=== PATIENT | female | born 1970 | race Caucasian/White ===

== ENCOUNTER 2016-08-20 22:56 | Emergency (ER) | payer OTHER ==
[~2016-08-20] VITALS: Ht 170.2 cm; Wt 73.5 kg
[~2016-08-20 22:56] MED LIST: PRIMATENE MIST15 M1 IH; VENTOLIN HFA18 GM IH
[2016-08-20 23:48] LABS: BASOPHIL COUNT 0.1 K/uL (0-0.1); EOSINOPHIL (%) 5.1 % (0-5); EOSINOPHIL COUNT 0.6 K/uL (0-0.3); HEMATOCRIT 40.1 % (36.0-46.0); IMMATURE GRANULOCYTE (%) 0.4 % (0.0-0.7); IMMATURE GRANULOCYTE COUNT 0.1 K/uL; INSTRUMENT ABS NEUTROPHIL CT 6.3 K/uL; LYMPHOCYTE COUNT 4.8 K/uL (1.0-2.8); MCH 32.3 PG (29.0-34.0); MCHC 34.7 G/DL (30.0-36.0); MONOCYTE (%) 6.2 % (3-12); MONOCYTE COUNT 0.8 K/uL (0-0.8); NEUTROPHIL (%) 49.5 % (45-76); NEUTROPHIL COUNT 6.3 K/uL (1.8-6.4); PLATELET COUNT 277 K/uL (156-360); RBC DIS.WIDTH-CV 12.2 % (11.8-14.6); RBC DIS.WIDTH-SD 42.2 % (39-53); RED BLOOD COUNT 4.31 M/uL (3.80-5.20); WHITE BLOOD COUNT 12.7 K/uL (4.1-10.2)
[2016-08-21 00:04] LABS: CHLORIDE 102 mEq/L (99-109); POTASSIUM 2.8 mEq/L (3.7-5.4); SODIUM 138 mEq/L (136-147)
[2016-08-21 00:07] LABS: GLUCOSE 88 mg/dL (70-99)
[2016-08-21 00:08] LABS: ANION GAP 11 MEQ/L (2-14); TOTAL BILIRUBIN 0.7 mg/dL (0.0-1.0)
[2016-08-21 00:09] LABS: SERUM ETHYL ALCOHOL 189 mg/dL
[2016-08-21 00:10] LABS: GFR ESTIMATE (CALCULATED) > 59 mL/min/
[2016-08-21 00:11] LABS: ALKALINE PHOSPHATASE 74 IU/L (3-129)
[2016-08-21 00:12] LABS: UREA NITROGEN (BUN) 6 mg/dL (9-23)
[2016-08-21 00:14] LABS: SALICYLATE < 5.0 MG/DL (15-30)
[2016-08-21 00:23] LABS: ADD MIUA? NO; BILIRUBIN NEGATIVE; BLOOD NEGATIVE; COLOR COLORLESS ((YELLOW)); GLUCOSE (STRIP) NEGATIVE; KETONES NEGATIVE; LEUKOCYTES NEGATIVE; NITRITE NEGATIVE; PROTEIN (STRIP) NEGATIVE; SPECIFIC GRAVITY 1.003 (1.000-1.030); UCUL ADDED? NO; UROBILINOGEN 0.2 MG/DL (0.2-1.0)
[2016-08-21 00:45] LABS: AMPHETAMINE NEGATIVE (500 ng/mL); BARBITURATES NEGATIVE (200 ng/mL); BENZODIAZEPINES NEGATIVE (150 ng/mL); COCAINE NEGATIVE (150 ng/mL); METHADONE NEGATIVE (200 ng/mL); METHAMPHETAMINE NEGATIVE (500 ng/mL); OPIATES (MORPHINE) NEGATIVE (100 ng/mL); OXYCODONE NEGATIVE (100 ng/mL); PHENCYCLIDINE NEGATIVE (25 ng/mL); PROPOXYPHENE NEGATIVE (300 ng/mL); THC CANNABINOIDS NEGATIVE (50 ng/mL); TRICYCLIC ANTIDEPRESSANTS NEGATIVE (300 ng/mL)
[2016-08-21 00:46] LABS: INTERNAL CONTROLS VALID? YES
[2016-08-21] MEDS ORDERED: ATARAX,VISTARIL50 MG PO (03:55)
[2016-08-21 04:20] VITALS: BP 100/69
== END 2016-08-21 04:32 | disposition home or self-care (01) ==
LOC: EME 22:56
PROVIDERS: Emergency Medicine
DX: F32.2 Major depressive disorder, single episode, severe without psychotic features (principal); F10.129 Alcohol abuse with intoxication, unspecified; F43.20 Adjustment disorder, unspecified; E87.6 Hypokalemia; Z63.4 Disappearance and death of family member; Y90.6 Blood alcohol level of 120-199 mg/100 ml; J45.909 Unspecified asthma, uncomplicated; F17.200 Nicotine dependence, unspecified, uncomplicated
CPT/HCPCS: 80053; 81003; 85025; 90837; 99281; 99285; G0480

== ENCOUNTER 2017-02-07 18:18 | Emergency (ER) | payer OTHER ==
[~2017-02-07] VITALS: Ht 167.6 cm; Wt 67.4 kg
[~2017-02-07 18:18] MED LIST changes: +ATARAX,VISTARIL50 MG PO
[2017-02-07 19:09] LABS: HEMATOCRIT 35.7 % (36.0-46.0); MCH 32.9 PG (29.0-34.0); MCHC 34.2 G/DL (30.0-36.0); MCV 96.2 FL (83-99); PLATELET COUNT 302 K/uL (156-360); RBC DIS.WIDTH-CV 13.6 % (11.8-14.6); RBC DIS.WIDTH-SD 47.9 % (39-53); RED BLOOD COUNT 3.71 M/uL (3.80-5.20); WHITE BLOOD COUNT 11.2 K/uL (4.1-10.2)
[2017-02-07 19:20] LABS: CHLORIDE 104 mEq/L (99-109); POTASSIUM 3.7 mEq/L (3.7-5.4); SODIUM 140 mEq/L (136-147)
[2017-02-07 19:22] LABS: GLUCOSE 95 mg/dL (70-99)
[2017-02-07 19:23] LABS: ANION GAP 13 MEQ/L (2-14)
[2017-02-07 19:25] LABS: GFR ESTIMATE (CALCULATED) > 59 mL/min/
[2017-02-07 19:26] LABS: UREA NITROGEN (BUN) 6 mg/dL (9-23)
[2017-02-07 19:30] LABS: TROP-I INTERPRETATION NEGATIVE; TROPONIN-I < 0.01 ng/mL (0.0-0.30)
[2017-02-07 21:11] LABS: D-DIMER ELISA < 150.00 ng/mLDDU (<230)
[2017-02-07 21:31] VITALS: BP 128/88
[2017-02-07 22:34] LABS: TROP-I INTERPRETATION NEGATIVE; TROPONIN-I < 0.01 ng/mL (0.0-0.30)
== END 2017-02-07 22:58 | disposition home or self-care (01) ==
LOC: EME 18:18
PROVIDERS: Physician Assistant Medical
DX: R07.9 Chest pain, unspecified (principal); E78.1 Pure hyperglyceridemia; F17.200 Nicotine dependence, unspecified, uncomplicated; J45.909 Unspecified asthma, uncomplicated; F32.9 Major depressive disorder, single episode, unspecified
CPT/HCPCS: 71020; 80048; 84484; 85027; 85379; 93005; 99281; 99283